=== PATIENT | female | born 1930 | race Caucasian/White ===

== ENCOUNTER → 2016-07-23 | Outpatient (CLI) | payer OTHER | LOC: BMCIMAGING 08:35 | PROVIDERS: ATTEND Family Medicine | DX: M25.562 Pain in left knee (principal) ==

== ENCOUNTER → 2016-11-11 | Outpatient (CLI) | payer OTHER | LOC: BMCIMAGING 13:17 | PROVIDERS: ATTEND Internal Medicine | DX: Z12.31 Encounter for screening mammogram for malignant neoplasm of breast (principal) | CPT/HCPCS: G0202 ==

== ENCOUNTER → 2017-11-13 | Outpatient (CLI) | payer OTHER | LOC: BMCIMAGING 12:46 | PROVIDERS: ATTEND Internal Medicine | DX: Z12.31 Encounter for screening mammogram for malignant neoplasm of breast (principal) ==

== ENCOUNTER 2018-07-07 15:50 | Inpatient (IN) | payer OTHER ==
--- NOTE | 2018-07-07 15:57 | EDPHY ---
H & P Time Seen by Provider: 07/07/18 15:56 HPI/ROS: CHIEF COMPLAINT: Mechanical fall, abnormal behavior HISTORY OF PRESENT ILLNESS: Patient is brought to the emergency department after she sustained a mechanical fall several days ago. Since that time she has been having abnormal behavior and weakness. The patient also reported palpitations and tachycardia. Paramedics were contacted the patient was found to be in atrial fibrillation. The patient reports that this is a new diagnosis. The patient's emwqdy-ox-pgy accompanies her in the emergency department. She reports the patient does seem more confused than usual. The patient reportedly was found to have a disheveled apartment by her ahlbzo-kv-dkb today. The sister -in-law had not visit to the apartment in some time. The patient herself denies acute complaints. She denies any headache, fever, dysuria or new medications. The patient does see Oncology for a history of macroglobulinemia. REVIEW OF SYSTEMS: A comprehensive 10 point review of systems is otherwise negative aside from elements mentioned in the history of present illness. Source: Patient Exam Limitations: No limitations - Personal History Current Tetanus/Diphtheria Vaccine: Yes - Medical/Surgical History PMH: Past medical history: Hypertension, macroglobulinemia, sleep apnea. - Physical Exam Exam: General Appearance: Elderly female Head: Ecchymosis noted over the left eyebrow with small hematoma Eyes: Pupils equal, round, reactive ENT, Mouth: Dry mucous membranes Neck: Nontender, trachea midline Respiratory: No chest wall tender, no subcutaneous air, lungs clear bilaterally Cardiovascular: Regular rate and rhythm Abdomen: Abdomen is soft and nontender, pelvis stable Skin: No lacerations, No abrasion Back: No midline T/L/S pain Extremities: Nontender, full range of motion Neurological: A&Ox3, normal motor function, normal sensory exam Constitutional: Initial Vital Signs Temperature (C) 36.4 C 07/07/18 16:01 Heart Rate 118 H 07/07/18 16:01 Respiratory Rate 16 07/07/18 16:01 Blood Pressure 111/92 H 07/07/18 16:01 O2 Sat (%) 96 07/07/18 16:01 O2 Delivery Mode Nasal Cannula O2 (L/minute) 2 Allergies/Adverse Reactions: MERCURY Allergy (Unknown, Uncoded 07/07/18 16:34) Home Medications: Medication Instructions Recorded Aspirin 07/07/18 Norvasc 10 mg (*) 07/07/18 Synthroid 07/07/18 Medical Decision Making - Diagnostics EKG Interpretation: EKG: Complete interpretation has been separately recorded in the [facility] archive. Summary impression: Atrial fibrillation, rate 131 Imaging Results: Imaging Impressions Cervical Spine CT 07/07/18 15:58 Impression: 1. Hypodensity within the right occipital lobe predominantly within the white matter. This may represent subacute ischemic changes versus vasogenic edema. Additionally, a hypodense focus is seen within the right cerebellum. Recommend MRI with and without contrast for further evaluation. 2. No acute cervical spine fracture. 3. Changes of chronic microvascular ischemic disease. Findings and recommendations discussed with Kye Morataya at 1639 hour, 07/07. Head CT 07/07/18 15:58 Impression: 1. Hypodensity within the right occipital lobe predominantly within the white matter. This may represent subacute ischemic changes versus vasogenic edema. Additionally, a hypodense focus is seen within the right cerebellum. Recommend MRI with and without contrast for further evaluation. 2. No acute cervical spine fracture. 3. Changes of chronic microvascular ischemic disease. Findings and recommendations discussed with Kye Morataya at 1639 hour, 07/07. Brain MRI 07/07/18 16:42 Impression: 1. Acute infarcts involving the right thalamus, right occipital lobe, and right cerebellum. 2. Serpiginous enhancement in the left occipital lobe cortex likely represents a late subacute infarct, less likely venous malformation. Would consider 3 month follow-up imaging. Findings and recommendations discussed with Kye Morataya at 1815 hour, 07/07. ED Course/Re-evaluation: The patient presents the ED for evaluation of altered mental status in the setting of a recent fall. The patient is also noted to have new onset atrial fibrillation. The patient was taken for stat noncontrast CT scan of the head and cervical spine which demonstrated no evidence of a skull fracture or intracranial hemorrhage. There was abnormal hypodensity is noted. Patient's EKG demonstrates atrial fibrillation with rapid ventricular response. This is a new diagnosis for the patient. MRI of the brain demonstrates multiple infarcts. The patient is not a candidate for thrombolytics therapy as she has no acute neurologic findings on her exam and the age of the infarcts are indeterminate. Consultation is made with Dr. Hubbard. The patient is started on a diltiazem drip in the emergency department for rate control. The patient was given aspirin. Differential Diagnosis: Differential diagnosis considered includes intracranial hemorrhage, dehydration , metabolic abnormality, stroke, arrhythmia, myocardial infarction, cervical spine fracture Critical Care Time: Critical care time exclusive of procedures and exclusive of the PA's time was 35 minutes, performed by myself, Kye Morataya MD. Patient presents to the ED after mechanical fall with head trauma. She also has new onset atrial fibrillation with rapid ventricular response. The patient is also been diagnosed with multiple infarcts. Patient is started on a diltiazem drip. She will be admitted to the step-down unit for close observation and monitoring. - Data Points Laboratory Results: Laboratory Results 07/07/18 16:00 07/07/18 16:00 07/07/18 07/07/18 07/07/18 16:00 16:00 16:00 WBC 11.44 10^3/uL H 10^3/uL (3.80-9.50) RBC 4.95 10^6/uL 10^6/uL (4.18-5.33) Hgb 16.0 g/dL g/dL (12.6-16.3) Hct 46.6 % % (38.0-47.0) MCV 94.1 fL fL (81.5-99.8) MCH 32.3 pg pg (27.9-34.1) MCHC 34.3 g/dL g/dL (32.4-36.7) RDW 13.4 % % (11.5-15.2) Plt Count 207 10^3/uL 10^3/uL (150-400) MPV 10.3 fL fL (8.7-11.7) Neut % (Auto) 83.8 % H % (39.3-74.2) Lymph % (Auto) 11.9 % L % (15.0-45.0) Wilkinson % (Auto) 3.9 % L % (4.5-13.0) Eos % (Auto) 0.0 % L % (0.6-7.6) Baso % (Auto) 0.1 % L % (0.3-1.7) Nucleat RBC Rel Count 0.0 % % (0.0-0.2) Absolute Neuts (auto) 9.59 10^3/uL H 10^3/uL (1.70-6.50) Absolute Lymphs (auto) 1.36 10^3/uL 10^3/uL (1.00-3.00) Absolute Monos (auto) 0.45 10^3/uL 10^3/uL (0.30-0.80) Absolute Eos (auto) 0.00 10^3/uL L 10^3/uL (0.03-0.40) Absolute Basos (auto) 0.01 10^3/uL L 10^3/uL (0.02-0.10) Absolute Nucleated RBC 0.00 10^3/uL 10^3/uL (0-0.01) Immature Gran % 0.3 % % (0.0-1.1) Immature Gran # 0.03 10^3/uL 10^3/uL (0.00-0.10) PT 15.0 SEC SEC (12.0-15.0) INR 1.16 (0.83-1.16) APTT 28.7 SEC SEC (23.0-38.0) Sodium 136 mEq/L mEq/L (135-145) Potassium 3.6 mEq/L mEq/L (3.5-5.2) Chloride 100 mEq/L mEq/L (97-110) Carbon Dioxide 26 mEq/l mEq/l (22-31) Anion Gap 10 mEq/L mEq/L (6-14) BUN 41 mg/dL H mg/dL (7-23) Creatinine 1.0 mg/dL mg/dL (0.6-1.0) Estimated GFR 52 Glucose 116 mg/dL H mg/dL (70-100) Calcium 9.2 mg/dL mg/dL (8.5-10.4) Medications Given: Discontinued Medications Sodium Chloride (Ns) 1,000 mls @ 0 mls/hr IV EDNOW ONE; Wide Open PRN Reason: Protocol Stop: 07/07/18 16:29 Last Admin: 07/07/18 16:36 Dose: 1,000 mls Departure - Departure Disposition: [facility] Acute Clinical Impression: Head injury, Ischemic stroke, Atrial fibrillation with RVR Condition: Fair
[2018-07-07 16:24] LABS: PLATELET COUNT 207 10^3/uL (150-400)
[2018-07-07] MEDS ORDERED: NS 1,000 ML IV ONE (16:28)
[2018-07-07 16:55] LABS: INR 1.16 (0.83-1.16)
--- NOTE | 2018-07-07 16:58 | CPEKG ---
Test Reason : OPEN Blood Pressure : / mmHG Vent. Rate : 131 BPM Atrial Rate : 238 BPM P-R Int : 144 ms QRS Dur : 089 ms QT Int : 327 ms P-R-T Axes : 000 061 239 degrees QTc Int : 483 ms Atrial fibrillation LVH with secondary repolarization abnormality Anterior infarct, old Confirmed by Kye Morataya ([id number]) on 07/07/2018 4:58:06 PM Referred By: Kye Morataya Confirmed By:Kye Morataya
[2018-07-07] MEDS ORDERED: GADOBUTROL 10 ML VIAL IVP ONE (17:13)
[2018-07-07] MEDS ORDERED: DILTIAZEM 125 MG in D5W 125 ML IV ONE (18:08)
[2018-07-07] MEDS ORDERED: ASPIRIN 81 MG CHEWABLE TAB PO ONE (18:08)
[2018-07-07] MEDS ORDERED: ONDANSETRON DISINTEGRATING 4 MG TAB PO PRN (18:28)
[2018-07-07] MEDS ORDERED: ONDANSETRON 4 MG/2 ML VIAL IVP PRN (18:28)
[2018-07-07] MEDS ORDERED: NS 1,000 ML IV SCH (18:30)
--- NOTE | 2018-07-07 20:13 | PDGENHP ---
History and Physical - Chief Complaint AMS, Fall - History of Present Illness Shantelle Bartlett is an 87 yo F with a PMHx of HTN, Hypothyroidism who presents to [facility] for AMS. She reports that she had a mechanical fall on Thursday and since then has been having confusion and weakness. She also reports palpitations and tachycardia. Due to her AMS, EMS was called and patient was found to be in A Fib w RVR which is a new diagnosis. She denies any chest pain, SOB, f/c, n/v, d/c, headache, visual changes, weakness, numbness/tingling. History Information - Allergies/Home Medication List Allergies/Adverse Reactions: MERCURY Allergy (Unknown, Uncoded 07/07/18 16:34) Home Medications: Aspirin [Aspirin 81mg (*)] 81 mg PO DAILY 07/07/18 [Last Taken Unknown] Levothyroxine [Synthroid 88 mcg (*)] 88 mcg PO DAILY06 07/07/18 [Last Taken Unknown] amLODIPine BESYLATE [Norvasc 5 mg (*)] 5 mg PO DAILY 07/07/18 [Last Taken Unknown] I have personally reviewed and updated: family history, medical history, social history, surgical history - Past Medical History hypertension Additional medical history: Hypothyroidism - Social History Smoking Status: Never smoked Review of Systems Review of Systems: ROS: 10pt was reviewed & negative except for what was stated in HPI & below Physical Exam Physical Exam: Temp Pulse Resp BP Pulse Ox 36.6 C 114 H 15 133/93 H 94 07/07/18 18:50 07/07/18 19:25 07/07/18 18:50 07/07/18 18:50 07/07/18 18:50 O2 (L/minute) 2 Constitutional: no apparent distress Eyes: PERRL Ears, Nose, Mouth, Throat: moist mucous membranes Cardiovascular: irregularly irregular, tachycardia Respiratory: no respiratory distress, clear to auscultation Gastrointestinal: soft, non-tender abdomen Genitourinary: no bladder fullness Skin: warm Musculoskeletal: full muscle strength Neurologic: No AAOx3 (AAOx2, not oriented to year) Psychiatric: interacting appropriately Lab Data & Imaging Review 07/07/18 16:00 07/07/18 16:00 WBC 11.44 10^3/uL (3.80-9.50) H 07/07/18 16:00 RBC 4.95 10^6/uL (4.18-5.33) 07/07/18 16:00 Hgb 16.0 g/dL (12.6-16.3) 07/07/18 16:00 Hct 46.6 % (38.0-47.0) 07/07/18 16:00 MCV 94.1 fL (81.5-99.8) 07/07/18 16:00 MCH 32.3 pg (27.9-34.1) 07/07/18 16:00 MCHC 34.3 g/dL (32.4-36.7) 07/07/18 16:00 RDW 13.4 % (11.5-15.2) 07/07/18 16:00 Plt Count 207 10^3/uL (150-400) 07/07/18 16:00 MPV 10.3 fL (8.7-11.7) 07/07/18 16:00 Neut % (Auto) 83.8 % (39.3-74.2) H 07/07/18 16:00 Lymph % (Auto) 11.9 % (15.0-45.0) L 07/07/18 16:00 Nye % (Auto) 3.9 % (4.5-13.0) L 07/07/18 16:00 Eos % (Auto) 0.0 % (0.6-7.6) L 07/07/18 16:00 Baso % (Auto) 0.1 % (0.3-1.7) L 07/07/18 16:00 Nucleat RBC Rel Count 0.0 % (0.0-0.2) 07/07/18 16:00 Absolute Neuts (auto) 9.59 10^3/uL (1.70-6.50) H 07/07/18 16:00 Absolute Lymphs (auto) 1.36 10^3/uL (1.00-3.00) 07/07/18 16:00 Absolute Monos (auto) 0.45 10^3/uL (0.30-0.80) 07/07/18 16:00 Absolute Eos (auto) 0.00 10^3/uL (0.03-0.40) L 07/07/18 16:00 Absolute Basos (auto) 0.01 10^3/uL (0.02-0.10) L 07/07/18 16:00 Absolute Nucleated RBC 0.00 10^3/uL (0-0.01) 07/07/18 16:00 Immature Gran % 0.3 % (0.0-1.1) 07/07/18 16:00 Immature Gran # 0.03 10^3/uL (0.00-0.10) 07/07/18 16:00 PT 15.0 SEC (12.0-15.0) 07/07/18 16:00 INR 1.16 (0.83-1.16) 07/07/18 16:00 APTT 28.7 SEC (23.0-38.0) 07/07/18 16:00 Sodium 136 mEq/L (135-145) 07/07/18 16:00 Potassium 3.6 mEq/L (3.5-5.2) 07/07/18 16:00 Chloride 100 mEq/L (97-110) 07/07/18 16:00 Carbon Dioxide 26 mEq/l (22-31) 07/07/18 16:00 Anion Gap 10 mEq/L (6-14) 07/07/18 16:00 BUN 41 mg/dL (7-23) H 07/07/18 16:00 Creatinine 1.0 mg/dL (0.6-1.0) 07/07/18 16:00 Estimated GFR 52 07/07/18 16:00 Glucose 116 mg/dL (70-100) H 07/07/18 16:00 Calcium 9.2 mg/dL (8.5-10.4) 07/07/18 16:00 Assessment & Plan Assessment: Ischemic stroke (Acute) - Had a fall on Thursday, having some confusion since - MRI Brain performed on admission which shows acute infarcts in R thalamus, R occipital lobe, and R cerebellum - Found to be in A Fib, new diagnosis - Not a candidate for tPA as now clear time of onset identified - Stroke order set in place with bedside swallow, PT/OT, TTE w/ Bubble study, lipid panel (start statin if elevated) - Will order ASA 81 mg qd - Neurology consult placed Atrial fibrillation with RVR (Acute) - New diagnosis, HR to 130's on admission - Started on Diltiazem gtt in ED, will continue overnight - Likely transition to PO Dilt in the AM - CHADsVASC atleast 4 given age, sex, and hx of HTN - Will initiate Elaquis tonight HTN - Continue home Amlodipine Hypothyroidism - Continue home Levothyroxine - Will check TSH FEN: NPO pending bedside swallow Code: DNR DVT PPx: Nura as above Dispo: Admit to Observation
[2018-07-07] MEDS ORDERED: CEPACOL LOZENGE PO PRN (20:42)
[2018-07-07] MEDS ORDERED: TEARS/DEXTRAN 70/HYPROMELLOSE 15 ML OPHT.BTL EACHEYE PRN (20:44)
[2018-07-07] MEDS ORDERED: CANN-EASE 2 GM TUBE TP PRN (22:42)
[2018-07-07] MEDS ORDERED: DILTIAZEM HCL/D5W 125 ML IV SCH (23:00)
[2018-07-07] MEDS: ACETAMINOPHEN 325 MG TAB PO PRN (23:18)
[2018-07-07] MEDS: APIXABAN 2.5 MG TAB PO SCH (23:18)
[2018-07-08] MEDS: ACETAMINOPHEN 325 MG TAB PO PRN (04:27)
[2018-07-08] MEDS: APIXABAN 2.5 MG TAB PO SCH ×2 (08:57→20:14)
[2018-07-08] MEDS: LEVOTHYROXINE 88 MCG TAB PO SCH (08:57)
[2018-07-08] MEDS ORDERED: amLODIPine BESYLATE 5 MG TAB PO SCH (09:00)
[2018-07-08] MEDS ORDERED: ASPIRIN 81 MG CHEWABLE TAB PO SCH (09:00)
--- NOTE | 2018-07-08 11:10 | GCON ---
[f rep st] CONSULTATION CHIEF COMPLAINT: Stroke. HISTORY OF PRESENT ILLNESS: Shantelle is a very pleasant 87-year-old lady who lives independently with a past medical history of hypertension and thyroid disease. She came in to the Emergency Department yesterday for mental status changes and a mechanical fall that occurred on Thursday. Indeed, she had onset of symptoms either late Thursday or Thursday (6 or 7 days ago) of feeling confused and tingling in the left hand and left foot. She did not seek immediate or any type of medical assessment for these symptoms, but because of persistent confusion and a fall that, again, occurred around 6 days ago, she came to the Emergency Department yesterday. She had a trauma evaluation for the mechanical fall with CT of the head and cervical spine. The CT of the cervical spine showed no cervical spine fracture. CT head suggested some changes of acute stroke, therefore, MRI was done. MRI brain shows acute infarcts in the right thalamus, right occipital lobe, right cerebellum and mesial temporal area of the right hemisphere. There is also some serpiginous enhancement in the left occipital cortex which may represent a late subacute infarct. In addition, she is found to be in new onset atrial fibrillation. Because of the acute and subacute strokes and new onset atrial fibrillation, she was started on low dose Eliquis at 2.5 mg b.i.d. without any problems with the medication. REVIEW OF SYSTEMS: A 10-point review of systems done, only pertinent to the HPI. For past medical history, social history, family history, home medications, allergies, see Dr. Hubbard's H and P. PHYSICAL EXAM: VITAL SIGNS: Blood pressure 107/68, temperature 36.3, heart rate is in the 60s. GENERAL: The patient is awake, alert, lucid and a very energetic person. She has no aphasia. NEUROLOGIC: On cranial nerve exam, her face is symmetric. On motor exam, she has some mild left-sided hemiplegia and tingling in her left foot on sensory exam. There is some appendicular ataxia in the left arm with [id number]. IMPRESSION/PLAN: 1. Acute stroke. 2. Atrial fibrillation. Overall, the patient's clinical history is consistent with new onset atrial fibrillation some time in the last few weeks with resultant acute strokes. I believe she also has obstructive sleep apnea, which is a risk factor for atrial fibrillation. She has multiple infarcts in the right posterior cerebral artery territory which likely had an onset 6 or 7 days ago. In addition, there is some enhancement in the left occipital cortex which may suggest she had a stroke several weeks ago that was asymptomatic as well. Discussed at length. She was started overnight on oral anticoagulation. I think this is reasonable as this is at least 6 days out after symptom onset, and based on the left occipital enhancement (subacute stroke), she may be at risk for recurrent cardioembolic emboli. We did discuss that, based on the size of the stroke, she certainly is at risk for hemorrhagic conversion, which could be fatal. However, she and her family agree with the plan as they would rather risk a fatal intracerebral hemorrhage rather than have a recurrent ischemic stroke which could leave her more physically debilitated. They have been counseled at great length regarding risks, benefits and alternatives of oral anticoagulation in this setting and agree with the current treatment. We will obtain a STAT CTA head of the head and neck now to exclude any large vessel occlusion. Echocardiogram is done and pending. Therapies have seen the patient already and have cleared her swallowing function. We will continue ongoing OT, PT and Speech for evaluation and help with ultimate disposition. We will follow up after angiography and echocardiogram are complete to make any further recommendations. We appreciate the consultation. Please do not hesitate to call if there are any changes in neurologic status with this patient or questions. If there is a large vessel occlusion, plan will be to call [facility] immediately to get their input about any possible intervention that could be indicated. I think this is unlikely as we are almost a week out after symptom onset in terms of a percutaneous intervention. Seventy total minutes floor today, over 50% in counseling and coordination of care. /[id number]/MODL MTDD
[2018-07-08] MEDS ORDERED: IOHEXOL 350mgI/ML (OMNIPAQUE) 150 ML BTL IV ONE (11:14)
--- NOTE | 2018-07-08 12:11 | ASMTCASEMG ---
Living Arrangements What is your living Answers: Alone arrangement? Who do you live with? Type Of Residence What kind of residence do Answers: House you live in? Discharge Plan Comments Coordination Status Comments Notes: Patient is an 87yo female who had a mechanical fall on Thursday and has had confusion since then. Patient is being admitted for ischemic stroke and AFIB. OT/PT/BREAD MOLDER/inpatient rehab evlas have been ordered. D/C plan TBD. CM will follow. Date Signed: 07/08/2018 12:11 PM Electronically Signed By:Melvina Duenas LCSW
--- NOTE | 2018-07-08 14:26 | GCON ---
[f rep st] CONSULTATION CRITICAL CARE CONSULTATION DATE OF CONSULTATION: 07/08/2018 HISTORY OF PRESENT ILLNESS: This patient is an 87-year-old female with a history of sleep apnea and paroxysmal supraventricular tachycardia who had a fall 5 days prior to admission with some associated palpitations. She did not seek attention but was continuing to have abnormal behavior and weakness. Paramedics were contacted late yesterday. She was found to be in atrial fibrillation and brought t o the emergency department. She was hemodynamically stable so was started on a diltiazem drip at brenna t time. A head CT and subsequent MRI, however, showed a significant stroke in the right thalamus, ri ght occipital region, and the right cerebellum. She was brought to the floor with heart rate under c ontrol using the diltiazem drip and further evaluated by both Internal Medicine and Neurology. She w as somewhat confused at the time of my evaluation. Was unable to recall much of the events that did occur, but her hicvas-ga-owb was present and did confirm several issues prior to that, though she was uncertain about issues of palpitations, lightheadedness, or syncope prior to Thursday's event. REVIEW OF SYSTEMS: Otherwise, negative. PAST MEDICAL HISTORY: 1. Hypertension. 2. Hypothyroidism. 3. PSVT. 4. Sleep apnea. 5. Pulmonary hypertension, though there is no echo available at this time. 6. Retinal artery occlusion. 7. Waldenstrom macroglobulinemia. 8. Shingles. PAST SURGICAL HISTORY: 1. Right total hip arthroplasty. 2. Hysterectomy. 3. Thyroidectomy. 4. Tonsillectomy. SOCIAL HISTORY: She is a nonsmoker. 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 Most of her medical history came from chart investigation rather than f rom the patient. CURRENT MEDICATIONS: She is currently getting Norvasc, Eliquis, aspirin, diltiazem drip, Synthroid, Zofran, normal saline, throat lozenges. PHYSICAL EXAM: VITAL SIGNS: She was afebrile. Blood pressure was 123/71, heart rate 66, respiratio ns 18, oxygen saturation 93% on room air. She was awake, alert, in no apparent distress. Able to sp eak in full sentences without using accessory muscles for breathing. GENERAL: She was alert and chula ented x3, but as I said, mildly and intermittently confused. EYES: Pupils were equally round and re active to light, nonicteric and noninjected. Mucous membranes moist without erythema or exudate. NE CK: Supple without adenopathy or jugular vein distention. LUNGS: Breath sounds were clear to auscu ltation bilaterally without wheezes, rubs, rales. HEART: Irregularly irregular without obvious murm urs. ABDOMEN: Soft, nontender, nondistended without hepatosplenomegaly. EXTREMITIES: No clubbing, cyanosis, or edema. NEUROLOGIC: Strength was easily 5/5 throughout, though she did complain of moise e left upper extremity paresthesias. There were no sensory deficits that I could tell. DATA REVIEWED: Includes the CT MRI as described above. Her white count was 11.4, hematocrit 46, kitty telets of 207. INR 1.16. Basic metabolic panel was normal save for a BUN of 41. LDL was 107. TSH of 2.8. Urinalysis looked dry. A sleep study on 02/12/2016, showed an AHI of 36.5. Subsequent comp liance report showed excellent compliance with CPAP. ASSESSMENT AND PLAN: 1. Acute cerebrovascular accident, probably related to underlying atrial fibrillation. The etiology is uncertain to me at this time. Inadequately treated sleep apnea would be a possibility, but she r eports excellent compliance, and review of old records show that to be the case as well. Ischemic he art disease is always a possibility but seems unlikely, and a troponin is pending at this time. An e chocardiogram was also performed, and those results are still pending. A CT angiogram of her brain a nd neck were both also normal. She is getting Eliquis now for anticoagulation related to her atrial fibrillation. In discussion with Dr. Mcfarland and the neurology service, we decided to put her in intensi ve care unit monitoring for the next 24 hours to monitor for potential bleeding transformation, thoug h the risk is low. 2. Atrial fibrillation. As described above, she has been on a diltiazem drip. I will transition he r to oral diltiazem today and follow up on her echocardiogram. Her CHADS score is clearly greater th an 2 and probably at least 6, so anticoagulation appears to be likely. She will eventually need a ca rdiologist and probably as an outpatient. 3. Sleep apnea. As I said, her sleep study was on 02/12/2016, showing an apnea-hypopnea index of 36 .5. She is on auto-titrating continuous positive airway pressure at 5 to 11 cm water and was last se en by Myranda Garcia on 08/12/2017. She complained of poor quality sleep at that time, but a nocturnal oximetry study on 08/25/2017, was essentially normal. I suggested she bring her device into the hos pital so she could use that device while she is here, but we could always emulate that if that became problematic. 4. Altered mental status. I think this is related to her atrial fibrillation as well as her recent stroke and should clear with time. I would certainly avoid benzodiazepines in a patient like this wh o is at very high risk for hospital-based delirium. /[id number]/MODL
--- NOTE | 2018-07-08 15:38 | PDMN ---
Medical Necessity Medical necessity: Change to IP, as of 07/08/18, per & MCG M-83; los >2 mn for eval/tx of acute ischemic stroke; requiring close SDU monitoring, med management & therapies; comorbid advanced age, AFIB w/RVR
--- NOTE | 2018-07-08 15:42 | HOSPPROG ---
Hospitalist Progress Note Assessment/Plan: * Acute stroke, multifocal c/w embolic -Eliquis started -per neuro keep ICU for neuro checks - risk of hemorrhagic conversion -risk felt to be okay as strokes likely subacute - days old * Afib - new diagnosis -rate control - now on PO diltiazem * HTN -change CCB to diltiazem * Hyperlipidemia -start statin * Metabolic encephalopathy -still seems very confused Subjective: Seems confused, family answering for her, not remembering recent events Objective: Vital Signs Temp Pulse Resp BP Pulse Ox 36.6 C 83 11 L 122/73 H 97 07/08/18 08:00 07/08/18 15:00 07/08/18 15:00 07/08/18 15:00 07/08/18 15:00 PT 15.0 SEC (12.0-15.0) 07/07/18 16:00 INR 1.16 (0.83-1.16) 07/07/18 16:00 CTA head/neck - negative Laboratory Tests 07/07/18 07/07/18 07/08/18 16:00 16:00 04:35 WBC 11.44 H Creatinine 1.0 LDL Cholesterol, Calc 107 H d/w Dr. Garcia ICU rounds - keep ICU today - Physical Exam Constitutional: no apparent distress, appears nourished, not in pain Cardiovascular: regular rate and rhythym, no murmur, rub, or gallop Respiratory: no respiratory distress, no rales or rhonchi, clear to auscultation Gastrointestinal: normoactive bowel sounds, soft, non-tender abdomen, no palpable masses Skin: no rashes or abrasions, no fluctuance, no induration Neurologic: sensation intact bilaterally, No AAOx3 Psychiatric: encephalopathic, poor insight, poor judgement, poor memory, No interacting appropriately ICD10 Worksheet Patient Problems: Problems Problem Status Onset Head injury Acute Ischemic stroke Acute Atrial fibrillation with RVR Acute
--- NOTE | 2018-07-08 16:26 | ECHO ---
[email or web address] [address] [address] Main: [phone] Fax: Transthoracic Echocardiogram Name: LANE SHANKAR MR#: [id number] Study Date: 07/08/2018 Study Time: 07:54 AM Date of : 1930 Age: 87 year(s) Height: 167.6 cm (66 in.) Weight: 68.04 kg (150 lb.) BSA: 1.77 m2 Gender: Female Examination: Echo Indication: Ischemic Stroke Image Quality: Adequate Contrast: Requested by: Fernando Hubbard BP: / Heart Rate: Rhythm: Indication: Ischemic Stroke Procedure Staff Wire Wrapper Machine Operator: Kristyn Antoine [facility] Reading Physician: Pablo Hernandez MD Requesting Provider: Conclusions: Normal size left ventricle. Mild concentric LV hypertrophy. Normal global systolic LV function. EF is 66 %. No regional wall motion abnormality. Unable to assess diastolic dysfunction. Normal size right ventricle. Normal RV function. The left atrium is mildly dilated. An agitated saline study was performed and was negative for intracardiac shunting. Echogenicity noted. The right atrium is normal in size. The mitral valve is normal in appearance and function. Mild mitral annular calcification. Mild mitral valve regurgitation is present. No mitral stenosis is present. The aortic valve is tri-leaflet. Aortic sclerosis is present. Moderate aortic valve regurgitation is present. The tricuspid valve is normal in appearance and function. Moderate tricuspid regurgitation is present. Right ventricular systolic pressure measures 35mmHg. The pulmonic valve is normal in appearance and function. Trivial pulmonic valve regurgitation. The aorta is normal. Normal size aortic root measuring 2.4 cm. Normal size ascending aorta measuring 2.7 cm. The IVC is normal sized. Trivial pericardial effusion. Supine on cpap. Patient: LANE SHANKAR Study Date: 07/08/2018 Page 1 of 3 07:54 AM A prior study is not available for comparison. A cardiac source of embolus is not identified on the basis of this study. If cardiac source of stroke is strongly suspected consider ALBA to better evaluate. The patient does appear to be in atrial fibrillation throughout the study and with a new history of stroke would have a CHADS VASC score of at least 4 on the basis of age gender and stroke. Full dose anticoagulation should be considered indefinitely if the patient is a candidate for same. Measurements: Chambers Valvular Assessment AV/MV Valvular Assessment TV/PV Normal Normal Normal Name Value Range Name Value Range Name Value Range Ao Angela (2D): 2.4 cm (1.4 cm-2.6 AV Vmax: 1.51 m/s (1 m/s-1.7 TR Vmax: 2.76 mm/s ( - ) cm) m/s) TR PGmax: 30 mmHg ( - ) IVSd (2D): 1.2 cm (0.6 cm-1.1 AV maxP mmHg ( - ) syst. PAP: 35 mmHg ( - ) cm) AV meanP mmHg ( - ) PV Vmax: 0.75 m/s (0.6 m/s-0.9 LVDd (2D): 4.0 cm (3.9 cm-5.3 BERTA (VTI): 1.3 cm ( - ) m/s) cm) AR (PHT): 564 ms ( - ) PV PGmax: 2 mmHg ( - ) LVDs (2D): 2.7 cm (2.1 cm-4 MV E Vmax: 0.98 m/s ( - ) cm) MV A Vmax: 0.25 m/s ( - ) LVPWd (2D): 1.2 cm ( - ) MV E/A: 3.92 ( - ) LVOTd 1.9 cm 1.9 cm mm MV PHT: 0.065 s ( - ) LVEF (BP): 66 % (>=55 %) MVA (PHT): 3.4 s ( - ) RVDd(2D): 2.9 cm (1.9 cm-3.8 cmmm) Continued Measurements: Chambers Valvular Assessment AV/MV Valvular Assessment TV/PV Name Value Name Value Name Value LADs: 3.7 cm MV DecTime: 215 m/s CVP (est.): 5 mmHg LADs Lon.6 cm MV E/E' Lateral: 11.70 LA Area: 21.8 cm2 AR Vmax: 3.84 cm/s LA Volume: 65 ml LA Volume Index: 36.7 ml/m2 RA Area: 13.8 cm2 Additional Vessels Name Value Ao Ascendin.7 cm Inferior Vena Cava: 1.4 cm Findings: Left Ventricle: Normal size left ventricle. Mild concentric LV hypertrophy. Normal global systolic LV function. EF is 66 %. No regional wall motion abnormality. Unable to assess diastolic dysfunction. Right Ventricle: Normal size right ventricle. Normal RV function. Left Atrium: The left atrium is mildly dilated. An agitated saline study was performed and was negative for intracardiac shunting. Echogenicity noted. Right Atrium: The right atrium is normal in size. Mitral Valve: The mitral valve is normal in appearance and function. Mild mitral annular calcification. Mild mitral valve regurgitation is present. No mitral stenosis is present. Aortic Valve: The aortic valve is tri-leaflet. Aortic sclerosis is present. Moderate aortic valve regurgitation is present. No aortic valve stenosis is present. Tricuspid Valve: Patient: LANE SHANKAR Study Date: 07/08/2018 Page 2 of 3 07:54 AM The tricuspid valve is normal in appearance and function. Moderate tricuspid regurgitation is present. The pulmonary artery pressure is mildly increased. Right ventricular systolic pressure measures 35mmHg. Pulmonic Valve: The pulmonic valve is normal in appearance and function. Trivial pulmonic valve regurgitation. Aorta: The aorta is normal. Normal size aortic root measuring 2.4 cm. Normal size ascending aorta measuring 2.7 cm. IVC: The IVC is normal sized. Pericardium: Trivial pericardial effusion. Exam Comments: Supine on cpap. (No Signature Object) Patient: LANE SHANKAR Study Date: 07/08/2018 Page 3 of 3 07:54 AM [id number]
[2018-07-08] MEDS: DILTIAZEM 30 MG TAB PO SCH (17:34)
[2018-07-09] MEDS: DILTIAZEM 30 MG TAB PO SCH ×4 (00:02→18:41)
[2018-07-09] MEDS: LEVOTHYROXINE 88 MCG TAB PO SCH (06:06)
[2018-07-09] MEDS: ATORVASTATIN CALCIUM 20 MG TAB PO SCH (09:28)
[2018-07-09] MEDS: APIXABAN 2.5 MG TAB PO SCH ×2 (09:29→20:26)
--- NOTE | 2018-07-09 09:36 | NEUROPROG ---
Assessment: 1. New onset atrial fibrillation 2. Stroke The patient's CTA of the head and neck showed no large vessel occlusion or acute findings. Echocardiogram showed some left atrial dilation consistent with atrial fibrillation. There is no right to left shunting. No obvious intracardiac thrombus. She is stable on Eliquis without further symptoms of retinal or cerebral ischemia. No other neurologic changes to suggest intracranial hemorrhage. If she has any sudden neurologic changes, we will obtain a stat head CT without contrast to assess for hemorrhagic conversion. She understands the risk of hemorrhagic conversion and that can be fatal or associated with great disability. Will continue the plan as described yesterday. She will be seen by therapies. She will have cognitive abnormalities based on the location of the right medial temporal region of the stroke. She will be on Q 4 neuro checks in ICU 1 more night and then can go to the floor tomorrow if there are no statin or new neurologic symptoms. She then can be considered for disposition by [facility] for a safe place for discharge. We will continue to follow as needed. Please do not hesitate to call for any questions or changes in neurologic status. Subjective: No new symptoms Objective: Vital Signs Temp Pulse Resp BP Pulse Ox 36.8 C 111 H 18 139/70 H 94 07/08/18 19:00 07/09/18 07:00 07/09/18 07:00 07/09/18 07:00 07/09/18 07:00 07/08/18 07/09/18 07/10/18 05:59 05:59 05:59 Intake Total 1844.2 Output Total 600 Balance 1244.2 PT 15.0 SEC (12.0-15.0) 07/07/18 16:00 INR 1.16 (0.83-1.16) 07/07/18 16:00 Awake and alert No aphasia Mild left pronator drift 35 total minutes floor time; over 50% counseling and coordination of care. Allergies/Adverse Reactions: MERCURY Allergy (Unknown, Uncoded 07/07/18 16:34)
[2018-07-09 10:09] LABS: PLATELET COUNT 162 10^3/uL (150-400)
--- NOTE | 2018-07-09 14:24 | PDINTPN ---
Green Building Engineer Progress Note Assessment/Plan: 87 F reported fall on 07/03 with possible palpitations but lives independently and did not seek attention until several days later when she developed increasing weakness and mental status changes. A head CT ?MRI revealed a significant CVA to the right side. She was found to have new onset afib which was treated with a diltiazem drip and started on Eliquis. Because of the risk for hemorrhagic transformation, she was moved to the ICU for closer observation. She also has SABRINA and reports excellent compliance. * CVA likely related to afib. Currently anticoagulated with Eliquis without complication. PT/OT underway, swallow OK. * Afib: new onset. Started QID PO dilt late yesterday- assuming she tolerates this we can move to long acting. She will need an eventual, outpatient cards eval. Echo shows moderate AR, EF 66 and no significant PH and negative bubble. * SABRINA- AHI= 36; continue home APAP. * Dispo: may need inpatient rehab prior to home Subjective: feels well without chest pain, sob. Remains in rate controlled afib. Objective: Vital Signs Temp Pulse Resp BP Pulse Ox 36.8 C 105 H 25 H 145/90 H 93 07/08/18 19:00 07/09/18 12:00 07/09/18 12:00 07/09/18 12:00 07/09/18 12:00 Laboratory Results 07/09/18 09:38 07/09/18 09:38 07/08/18 07/09/18 07/10/18 05:59 05:59 05:59 Intake Total 1844.2 Output Total 600 Balance 1244.2 PT 15.0 SEC (12.0-15.0) 07/07/18 16:00 INR 1.16 (0.83-1.16) 07/07/18 16:00 Physical Exam - Physical Exam General Appearance: WD/WN, alert, no apparent distress EENT: PERRL/EOMI Neck: supple Respiratory: lungs clear, normal breath sounds, decreased breath sounds, No respiratory distress, No accessory muscle use Cardiac/Chest: irregularly irregular, No edema, No JVD Abdomen: non-tender, soft, No distended Skin: normal color, warm/dry, No cyanosis Lymphatic: no adenopathy Extremities: No pedal edema Neuro/Psych: alert, normal mood/affect, oriented x 3, sensory deficit ( paresthesia left UE), No abnormal ledger clerk II-XII, No motor weakness ICD10 Worksheet Patient Problems: Problems Problem Status Onset Atrial fibrillation with RVR Acute Head injury Acute Ischemic stroke Acute
--- NOTE | 2018-07-09 14:45 | ASMTCMCOM ---
CM Note CM Note Notes: Patient was discussed in rounds. PT thinks patient is appropriate for inpatient rehab. Requested Dr. Maloney place an order for inpatient rehab eval. CM will follow. Date Signed: 07/09/2018 02:44 PM Electronically Signed By:Melvina Duenas LCSW
[2018-07-09] MEDS ORDERED: PROTOCOL POTASSIUM 1 DOSE MISC PRN (16:08)
--- NOTE | 2018-07-09 16:11 | HOSPPROG ---
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 vazquez regarding expected neuro recovery tele reviewed - afib, a little rapid - Physical Exam Constitutional: no apparent distress, appears nourished, not in pain Cardiovascular: irregularly irregular, tachycardia, No JVD, No edema Respiratory: no respiratory distress, no rales or rhonchi, clear to auscultation Gastrointestinal: normoactive bowel sounds, soft, non-tender abdomen, no palpable masses Skin: no rashes or abrasions, no fluctuance, no induration Neurologic: sensation intact bilaterally, CN II-XII Intact, No weakness, No facial droop Psychiatric: interacting appropriately, encephalopathic, poor insight, poor judgement, poor memory, No thought process linear, No flat affect, No agitated ICD10 Worksheet Patient Problems: Problems Problem Status Onset Atrial fibrillation with RVR Acute Head injury Acute Ischemic stroke Acute
[2018-07-09] MEDS ORDERED: POTASSIUM CL 10 MEQ TAB PO ONE (19:31)
[2018-07-09] MEDS: CEPACOL LOZENGE PO PRN (20:49)
[2018-07-10] MEDS: DILTIAZEM 30 MG TAB PO SCH (00:44)
[2018-07-10] MEDS: ACETAMINOPHEN 325 MG TAB PO PRN (00:44)
[2018-07-10] MEDS: CEPACOL LOZENGE PO PRN ×3 (00:45→12:21)
[2018-07-10] MEDS: LEVOTHYROXINE 88 MCG TAB PO SCH (05:50)
[2018-07-10] MEDS: APIXABAN 2.5 MG TAB PO SCH ×2 (09:42→19:45)
[2018-07-10] MEDS: ATORVASTATIN CALCIUM 20 MG TAB PO SCH (09:42)
[2018-07-10] MEDS: DILTIAZEM CD 120 MG CAP PO SCH (09:42)
[2018-07-10] MEDS ORDERED: POTASSIUM CL 10 MEQ TAB PO ONE ×2 (10:27→19:31)
--- NOTE | 2018-07-10 12:18 | NEUROPROG ---
Assessment: 1. New onset atrial fibrillation 2. Stroke The patient's CTA of the head and neck showed no large vessel occlusion or acute findings. Echocardiogram showed some left atrial dilation consistent with atrial fibrillation. There is no right to left shunting. No obvious intracardiac thrombus. She is stable on Eliquis without further symptoms of retinal or cerebral ischemia. No other neurologic changes to suggest intracranial hemorrhage. If she has any sudden neurologic changes, we will obtain a stat head CT without contrast to assess for hemorrhagic conversion. She understands the risk of hemorrhagic conversion and that can be fatal or associated with great disability. Will continue the plan as described yesterday. She will be seen by therapies. She will have cognitive abnormalities based on the location of the right medial temporal region of the stroke. The patient remains stable overnight no changes in neurologic status to suggest intracranial hemorrhage. She will be transferred to the floor today. Disposition per therapies and hospital medicine, she may discharge from hospital as soon as Thursday. We will see what becomes available and how she does clinically. We will sign off and follow up p.r.n. Please do not hesitate to call for any questions or changes in neurologic status. Finally, I will see her in the office in 10 -12 weeks to review her stroke and how she is doing cognitively. Certainly, the location of the stroke may put her at risk for post stroke seizures in addition to the cognitive impairment. We will follow her as an outpatient. Subjective: No new symptoms Objective: Vital Signs Temp Pulse Resp BP Pulse Ox 36.6 C 69 20 144/89 H 95 07/10/18 12:00 07/10/18 12:00 07/10/18 12:00 07/10/18 12:00 07/10/18 12:00 Laboratory Results 07/09/18 09:38 07/10/18 05:59 07/09/18 07/10/18 07/11/18 05:59 05:59 05:59 Intake Total 1844.2 900 Output Total 600 503 Balance 1244.2 397 PT 15.0 SEC (12.0-15.0) 07/07/18 16:00 INR 1.16 (0.83-1.16) 07/07/18 16:00 She is awake and alert No aphasia Able to ambulate Allergies/Adverse Reactions: MERCURY Allergy (Unknown, Uncoded 07/07/18 16:34)
--- NOTE | 2018-07-10 14:22 | PDINTPN ---
Finishing Machine Operator Automatic Progress Note Assessment/Plan: 87 F reported fall on 07/03 with possible palpitations but lives independently and did not seek attention until several days later when she developed increasing weakness and mental status changes. A head CT ?MRI revealed a significant CVA to the right side. She was found to have new onset afib which was treated with a diltiazem drip and started on Eliquis. Because of the risk for hemorrhagic transformation, she was moved to the ICU for closer observation. She also has SABRINA and reports excellent compliance. * CVA likely related to afib. Currently anticoagulated with Eliquis without complication. PT/OT underway, swallow OK. Transfer to floor/PCU * Afib: new onset. Started QID PO dilt, followed by CR without difficulty. She will need an eventual, outpatient, cards eval. Echo shows moderate AR, EF 66 and no significant PH and negative bubble. * SABRINA- AHI= 36; continue home APAP. I can see her as an outpatient to manage her SABRINA. * Dispo: may need inpatient rehab prior to home 07/10/18 14:20 Subjective: continues to improve, though still minor memory issues. Converted to NSR Objective: Vital Signs Temp Pulse Resp BP Pulse Ox 36.6 C 69 20 144/89 H 95 07/10/18 12:00 07/10/18 12:00 07/10/18 12:00 07/10/18 12:00 07/10/18 12:00 Laboratory Results 07/09/18 09:38 07/10/18 05:59 07/09/18 07/10/18 07/11/18 05:59 05:59 05:59 Intake Total 1844.2 900 Output Total 600 503 Balance 1244.2 397 PT 15.0 SEC (12.0-15.0) 07/07/18 16:00 INR 1.16 (0.83-1.16) 07/07/18 16:00 Physical Exam - Physical Exam General Appearance: WD/WN, alert, no apparent distress EENT: PERRL/EOMI Neck: supple Respiratory: lungs clear, normal breath sounds, decreased breath sounds, No respiratory distress, No accessory muscle use Cardiac/Chest: regular rate, rhythm, No edema, No JVD, No tachycardia Abdomen: non-tender, soft, No distended Skin: normal color, warm/dry, No cyanosis Lymphatic: no adenopathy Extremities: No pedal edema Neuro/Psych: alert, normal mood/affect, oriented x 3 ICD10 Worksheet Patient Problems: Problems Problem Status Onset Atrial fibrillation with RVR Acute Head injury Acute Ischemic stroke Acute
--- NOTE | 2018-07-10 15:36 | HOSPPROG ---
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 -ST cog eval -OT recommending SNF, CM consulted Subjective: Patient reports no complaints this AM Objective: Vital Signs Temp Pulse Resp BP Pulse Ox 36.6 C 65 16 136/78 H 92 07/10/18 12:00 07/10/18 14:24 07/10/18 14:24 07/10/18 14:24 07/10/18 14:24 Laboratory Results 07/09/18 09:38 07/10/18 05:59 07/09/18 07/10/18 07/11/18 05:59 05:59 05:59 Intake Total 1844.2 900 Output Total 600 503 Balance 1244.2 397 PT 15.0 SEC (12.0-15.0) 07/07/18 16:00 INR 1.16 (0.83-1.16) 07/07/18 16:00 - Physical Exam Constitutional: no apparent distress Eyes: PERRL Ears, Nose, Mouth, Throat: moist mucous membranes Cardiovascular: irregularly irregular Respiratory: no respiratory distress Gastrointestinal: soft, non-tender abdomen Skin: warm Neurologic: No AAOx3 Psychiatric: interacting appropriately ICD10 Worksheet Patient Problems: Problems Problem Status Onset Atrial fibrillation with RVR Acute Head injury Acute Ischemic stroke Acute
--- NOTE | 2018-07-10 16:16 | ASMTCMCOM ---
CM Note CM Note Notes: Pt admitted for a fib and ischemic stroke and lives alone. Spoke with pt's sister in law - Hanna. Pt's son Triston ([phone]) lives in [place] and is requesting telephone updates from hospitalists. Therapies are recommending SNF. Family prefers [facility] as pt may need LTC. Referral sent. CM to follow. D/C Plan: [facility] pending acceptance. Date Signed: 07/10/2018 04:15 PM Electronically Signed By:Jenniffer Matias
[2018-07-11] MEDS: LEVOTHYROXINE 88 MCG TAB PO SCH (06:24)
[2018-07-11] MEDS ORDERED: POTASSIUM CL 10 MEQ TAB PO ONE (07:17)
[2018-07-11] MEDS: APIXABAN 2.5 MG TAB PO SCH (08:49)
[2018-07-11] MEDS: ATORVASTATIN CALCIUM 20 MG TAB PO SCH (08:49)
[2018-07-11] MEDS: DILTIAZEM CD 120 MG CAP PO SCH (08:49)
[2018-07-11 11:14] VITALS: BP 146/80
--- NOTE | 2018-07-11 11:55 | PDIAF ---
- Diagnosis Code Status: Do Not Resuscitate - Medication Management Discharge Medications: electronically signed and located in the Home Medication List. - Orders Services needed: Home Care, Registered Nurse, Physical Therapy, Occupational Therapy Home Care Face to Face: I certify that this patient was under my care and that I had the required [id number] encounter meeting the encounter requirements on the discharge day. My findings support the fact that the patient is homebound as defined in Home Care Face to Face Continued: CMS Chapter 7 Medicare Benefits Manual 30.1.1 , The condition of the patient is such that there exists a normal inability to leave home and consequently, leaving home would require a considerable and taxing effort. Diet Texture: Regular Texture Diet, Thin Liquids, Meds Whole w/Liquids - Follow Up Care Current Providers and Referrals: Patient,NotPresent [Unknown] - As per Instructions Timur Mcfarland MD [Medical Doctor] - (follow up in 10-12 weeks)
--- NOTE | 2018-07-11 12:16 | ASMTLACE ---
LACE Acuity / Level of Answers: Yes Care: Did the patient have an inpatient admission? Comorbidities - select Answers: Other Notes: HTN; Hypothyroid; AFib all that apply # of Emergency department Answers: 1-2 visits in the last 6 months Score: 5 Date Signed: 07/11/2018 12:16 PM Electronically Signed By:MAUREEN Thompson
--- NOTE | 2018-07-11 12:16 | ASMTDCNOTE ---
Case Management Discharge Discharge Order Complete? Answers: Yes Patient to Obtain Answers: Other Notes: [facility] to arrange Medications transport Transportation Arranged Answers: Other Notes: [facility] to arrange transport Case Management Transport Answers: Yes Form Complete Faxed Final Orders Answers: Yes Agency/Facility Transfer Answers: Yes Report Printed & Faxed to Receiving Agency Family Notified Answers: Yes Discharge Comments Notes: Pt is getting discharged to [facility], no other CM needs idenified. [facility] to arrange transport. Date Signed: 07/11/2018 12:15 PM Electronically Signed By:MAUREEN Thompson
--- NOTE | 2018-07-11 13:16 | ASDISCHSUM ---
Discharge Information Plan Status:SNF Medically Cleared to Leave:07/10/2018 Discharge Date:07/11/2018 02:50 PM CM D/C Disposition:Senior Living Facility ADT D/C Disposition:Senior Living Facility Projected Discharge Date:07/11/2018 11:00 AM Transportation at D/C:Wheelchair Van Discharge Delay Reason: Follow-Up Date:07/11/2018 11:00 AM Discharge Slot: Final Diagnosis: Placement Information Referral Type:*Retirement/SNF Referral ID:[id number] Provider Name:[facility] Address 1:[address] Address 2: City:[place] Selection Factors: State:[place] Patient Contact Information Contact Name:DASHAWN Relationship:Other Address: Work Phone: City: [facility] Phone: [facility] Code: Email: Financial Information Financial Class:Medicare Primary Plan Desc:MEDICARE INPATIENT Primary Plan Number:[id number] Secondary Plan Desc:STU [facility]IZALDE [facility] Secondary Plan Number:[id number] Assessment Information LACE LACE Acuity / Level of Answers: Yes Care: Did the patient have an inpatient admission? Comorbidities - select Answers: Other Notes: HTN; Hypothyroid; AFib all that apply # of Emergency department Answers: 1-2 visits in the last 6 months Score: 5 Date Signed: 07/11/2018 12:16 PM Electronically Signed By:MAUREEN Thompson [facility] Initial CM Assessment Living Arrangements What is your living Answers: Alone arrangement? Who do you live with? Type Of Residence What kind of residence do Answers: House you live in? Discharge Plan Comments Coordination Status Comments Notes: Patient is an 87yo female who had a mechanical fall on Thursday and has had confusion since then. Patient is being admitted for ischemic stroke and AFIB. OT/PT/RUBBISH COLLECTOR/inpatient rehab evlas have been ordered. D/C plan TBD. CM will follow. Date Signed: 07/08/2018 12:11 PM Electronically Signed By:Melvina Duenas LCSW [facility] Progress Note CM Note CM Note Notes: Patient was discussed in rounds. PT thinks patient is appropriate for inpatient rehab. Requested Dr. Maloney place an order for inpatient rehab eval. CM will follow. Date Signed: 07/09/2018 02:44 PM Electronically Signed By:Melvina Duenas LCSW [facility] Progress Note CM Note CM Note Notes: Pt admitted for a fib and ischemic stroke and lives alone. Spoke with pt's sister in [place]. Pt's son Triston ([phone]) lives in [place] and is requesting telephone updates from hospitalists. Therapies are recommending SNF. Family prefers [facility] as pt may need LTC. Referral sent. CM to follow. D/C Plan: [facility] pending acceptance. Date Signed: 07/10/2018 04:15 PM Electronically Signed By:Jenniffer Matias Case Management Discharge Plan Note Case Management Discharge Discharge Order Complete? Answers: Yes Patient to Obtain Answers: Other Notes: [facility] to arrange Medications transport Transportation Arranged Answers: Other Notes: [facility] to arrange transport Case Management Transport Answers: Yes Form Complete Faxed Final Orders Answers: Yes Agency/Facility Transfer Answers: Yes Report Printed & Faxed to Receiving Agency Family Notified Answers: Yes Discharge Comments Notes: Pt is getting discharged to [facility], no other CM needs idenified. [facility] to arrange transport. Date Signed: 07/11/2018 12:15 PM Electronically Signed By:MAUREEN Thompson Intervention Information Intervention Type:*Incorrect Registration Date of Service:07/07/2018 12:37 PM Patient Type:Inpatient Staff Member:JOHN PAUL Rangel Courtney Hours: Discipline: Severity: Comment:
--- NOTE | 2018-07-11 14:27 | PDDCSUM ---
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
== END 2018-07-11 14:50 | DRG 64 ==
LOC: EDUNIT# → INTOOBSV 18:03 → F2N 18:54 → OBSVTOIN 07-08 15:20 → F2N 07-08 17:10 → F2W 07-10 14:15
PROVIDERS: ADMIT Internal Medicine; ATTEND Internal Medicine
DX: I63.9 Cerebral infarction, unspecified (principal); G93.41 Metabolic encephalopathy; E86.9 Volume depletion, unspecified; I48.91 Unspecified atrial fibrillation; I10 Essential (primary) hypertension; E78.5 Hyperlipidemia, unspecified; E03.9 Hypothyroidism, unspecified; G47.30 Sleep apnea, unspecified; Z96.641 Presence of right artificial hip joint
CPT/HCPCS: 92507-GN; 92523-GN; 92610-GN; 97116-GP; 97161-GP; 97166-GO; 97530-GO; 97530-GP; 97535-GO; A9585; G0378; Q9967

== ENCOUNTER → 2018-09-10 | Outpatient (CLI) | payer OTHER | LOC: BMCIMAGING 08:40 | PROVIDERS: ATTEND Family Medicine | DX: S69.91XA Unspecified injury of right wrist, hand and finger(s), initial encounter (principal); M19.031 Primary osteoarthritis, right wrist ==